=== PATIENT | female | born 1965 | race Caucasian/White ===

== ENCOUNTER 2016-11-20 18:09 | Emergency (ER) | payer BC ==
[2016-11-20] MEDS ORDERED: TRAMADOL 50 MG TAB ONE (19:52)
== END 2016-11-20 19:55 | disposition home or self-care (01) ==
LOC: ER 18:09
DX: S82.61XA Displaced fracture of lateral malleolus of right fibula, initial encounter for closed fracture (principal); W19.XXXA Unspecified fall, initial encounter